=== PATIENT | male | born 1960 | race African-American/Black ===

== ENCOUNTER 2018-06-14 19:42 | Inpatient (IN) | payer OTHER ==
[~2018-06-14] VITALS: Ht 190.5 cm; Wt 101.2 kg
[2018-06-14 21:03] LABS: BASOPHILS % 1.2 % (0.0-2.0); EOSINOPHILS % 5.5 % (0.0-5.0); HEMATOCRIT. 31.1 % (42.0-52.0); HEMOGLOBIN. 10.5 g/dL (14.0-18.0); LYMPHOCYTES % 23.6 % (20.0-50.0); MEAN CORPUSCULAR HEMOGLOBIN 29.6 pg (28.0-32.0); MEAN CORPUSCULAR VOLUME 87.7 fL (80.0-94.0); MONOCYTES % 12.2 % (2.0-8.0); NEUTROPHILS % 57.5 % (40.0-76.0); PLATELET 325 x1000/uL (130-400); RED BLOOD CELL COUNT 3.55 mill/uL (4.7-6.1); RED CELL DISTRIBUTION WIDTH 13.7 % (11.6-14.6)
[2018-06-14 21:10] LABS: CHLORIDE 106 mEq/L (98-107)
[2018-06-14 21:12] LABS: PROTHROMBIN TIME 10.1 sec (9.1-11.1)
[2018-06-14] MEDS ORDERED: IPRATROPIUM/ALBUTEROL 0.5-3(2.5)MG/3ML NEB INH PRN (22:45)
[2018-06-14] MEDS ORDERED: ONDANSETRON HCL 4MG/2ML VIAL IV PRN (22:45)
[2018-06-14] MEDS ORDERED: ACETAMINOPHEN 325MG TABLET PO PRN (22:45)
[2018-06-14] MEDS ORDERED: DOCUSATE SODIUM 100MG CAPSULE PO PRN (22:45)
[2018-06-14] MEDS ORDERED: CLONIDINE 0.1MG TABLET PO PRN (22:45)
[2018-06-14] MEDS ORDERED: ACETAMINOPHEN 650MG/20.3ML UDC GT PRN (22:45)
[2018-06-14] MEDS ORDERED: GUAIFENESIN 200MG/10ML SUGAR FREE UDC PO PRN (22:45)
[2018-06-14] MEDS ORDERED: MAGNESIUM/ALUMINUM HYDROXIDE/SIMETHICONE 30ML UDC PO PRN (22:45)
[2018-06-14] MEDS ORDERED: HYDROCODONE/ACETAMINOPHEN 5/325MG TABLET PO PRN (22:45)
[2018-06-14] MEDS ORDERED: DIPHENHYDRAMINE 50MG/ML VIAL IV PRN (22:45)
[2018-06-14] MEDS ORDERED: ACETAMINOPHEN 650MG SUPP PR PRN (22:45)
[2018-06-15 01:02] LABS: CLARITY URINE CLOUDY (CLEAR); COLOR URINE YELLOW (YELLOW); KETONES URINE NEGATIVE (NEGATIVE); LEUKOCYTE ESTERASE URINE 2+ (NEGATIVE); NITRITE URINE NEGATIVE (NEGATIVE); OCCULT BLOOD URINE 2+ (NEGATIVE); PROTEIN URINE 1+ (NEGATIVE); SPECIFIC GRAVITY URINE 1.011 (1.005-1.030); UROBILINOGEN URINE 0.2 E.U./dL (0.2-1.0)
[2018-06-15 01:26] LABS: *AMPHETAMINES SCREEN URINE NEGATIVE (NEGATIVE); *BARBITURATES SCREEN URINE NEGATIVE (NEGATIVE); *BENZODIAZEPINES SCREEN URINE NEGATIVE (NEGATIVE); *COCAINE SCREEN URINE NEGATIVE (NEGATIVE); METHADONE URINE SCREEN NEGATIVE (NEGATIVE); OPIATES URINE SCREEN NEGATIVE (NEGATIVE)
[2018-06-15 01:27] LABS: CANNABINOID URINE SCREEN PRESUMTIVE POSITIVE (NEGATIVE); PHENCYCLIDINE URINE SCREEN NEGATIVE (NEGATIVE)
[2018-06-15] MEDS ORDERED: SODIUM CHLORIDE 0.45% 1,000 ML IV SCH (04:43)
[2018-06-15] MEDS ORDERED: NA PHOS,M-B/NA PHOS,DI-BA ENEMA 118ML PR PRN (04:44)
[2018-06-15 05:00] VITALS: BP 111/67
[2018-06-15] MEDS: SODIUM CHLORIDE 0.9% INJ 3ML FLUSH IVF SCH ×3 (05:32→22:06)
[2018-06-15 08:00] VITALS: BP 122/73
[2018-06-15] MEDS: SODIUM CHLORIDE 0.9% 1,000 ML IV SCH ×2 (10:25→22:06)
[2018-06-15] MEDS: ENOXAPARIN 40MG/0.4ML SYR SUBCUT SCH (10:25)
[2018-06-15 11:23] LABS: BASOPHILS % 0.9 % (0.0-2.0); HEMATOCRIT. 30.3 % (42.0-52.0); HEMOGLOBIN. 10.4 g/dL (14.0-18.0); LYMPHOCYTES % 25.1 % (20.0-50.0); MEAN CORPUSCULAR HEMOGLOBIN 29.6 pg (28.0-32.0); MEAN CORPUSCULAR VOLUME 86.1 fL (80.0-94.0); MEAN PLATELET VOLUME 7.8 fl (7.4-10.4); MONOCYTES % 11.7 % (2.0-8.0); NEUTROPHILS % 56.3 % (40.0-76.0); PLATELET 337 x1000/uL (130-400); RED BLOOD CELL COUNT 3.52 mill/uL (4.7-6.1); RED CELL DISTRIBUTION WIDTH 13.7 % (11.6-14.6)
[2018-06-15 11:32] LABS: CHLORIDE 108 mEq/L (98-107)
[2018-06-15 11:39] LABS: LDL CHOLESTEROL 47 mg/dL (5-100)
[2018-06-15 11:40] LABS: HDL CHOLESTEROL 43 mg/dL (40-59)
[2018-06-15 11:41] LABS: CREATINE KINASE 103 IU/L (39-308)
[2018-06-15 11:44] LABS: CREATINE KINASE MB FRACTION 1.4 ng/mL (0.5-3.6)
[2018-06-15 11:46] LABS: T4 FREE 0.99 ng/dL (0.76-1.46)
[2018-06-15 12:50] VITALS: BP 134/69
[2018-06-15] MEDS ORDERED: LISI40TA4 PO (13:27)
[2018-06-15] MEDS ORDERED: AMLO10TA80 PO (13:28)
[2018-06-15] MEDS ORDERED: DOCU-286 PO (13:29)
[2018-06-15] MEDS ORDERED: ATOR40TA70 PO (13:30)
[2018-06-15] MEDS ORDERED: CHLO25TA22 PO (13:32)
[2018-06-15 16:00] VITALS: BP 143/73
[2018-06-15 16:01] LABS: CREATINE KINASE 112 IU/L (39-308)
[2018-06-15 16:02] LABS: CREATINE KINASE MB FRACTION 1.6 ng/mL (0.5-3.6)
[2018-06-15 20:00] VITALS: BP 137/87
[2018-06-15] MEDS: ATORVASTATIN CALCIUM 40MG TABLET PO SCH (20:39)
[2018-06-15] MEDS: CHLORPROMAZINE HCL 25 MG TABLET PO SCH (20:39)
[2018-06-15] MEDS: AMLODIPINE 10MG TABLET PO SCH (20:40)
[2018-06-16] VITALS: BP 146/79
[2018-06-16 04:00] VITALS: BP 111/70
[2018-06-16 08:00] VITALS: BP 114/82
[2018-06-16] MEDS: AMLODIPINE 10MG TABLET PO SCH (08:30)
[2018-06-16] MEDS: CHLORPROMAZINE HCL 25 MG TABLET PO SCH ×4 (08:31→20:51)
[2018-06-16] MEDS: ENOXAPARIN 40MG/0.4ML SYR SUBCUT SCH (08:31)
[2018-06-16] MEDS: SODIUM CHLORIDE 0.9% INJ 3ML FLUSH IVF SCH ×2 (08:33→12:59)
[2018-06-16] MEDS: SODIUM CHLORIDE 0.9% 1,000 ML IV SCH (11:27)
[2018-06-16 11:29] LABS: CHLORIDE 111 mEq/L (98-107)
[2018-06-16 12:00] VITALS: BP 116/75
[2018-06-16 12:30] LABS: BASOPHILS % 0.7 % (0.0-2.0); EOSINOPHILS % 6.4 % (0.0-5.0); HEMATOCRIT. 30.9 % (42.0-52.0); HEMOGLOBIN. 10.4 g/dL (14.0-18.0); LYMPHOCYTES % 24.1 % (20.0-50.0); MEAN CORPUSCULAR HEMOGLOBIN 29.5 pg (28.0-32.0); MEAN CORPUSCULAR VOLUME 87.9 fL (80.0-94.0); MONOCYTES % 11.8 % (2.0-8.0); PLATELET 315 x1000/uL (130-400); RED BLOOD CELL COUNT 3.51 mill/uL (4.7-6.1); RED CELL DISTRIBUTION WIDTH 13.8 % (11.6-14.6)
[2018-06-16 16:00] VITALS: BP 112/62
[2018-06-16 20:00] VITALS: BP 131/68
[2018-06-16] MEDS: ATORVASTATIN CALCIUM 40MG TABLET PO SCH (20:50)
== END 2018-06-16 21:37 | disposition short-term general hospital (02) | DRG 74 ==
LOC: ER 19:42 → 7WST 21:55 → ENRESERV 06-15 02:19
PROVIDERS: ADMIT Family Medicine; ATTEND Family Medicine
DX: G90.8 Other disorders of autonomic nervous system (principal); N17.9 Acute kidney failure, unspecified; E11.22 Type 2 diabetes mellitus with diabetic chronic kidney disease; I12.9 Hypertensive chronic kidney disease with stage 1 through stage 4 chronic kidney disease, or unspecified chronic kidney disease; N18.9 Chronic kidney disease, unspecified; D64.9 Anemia, unspecified; E78.5 Hyperlipidemia, unspecified; E86.0 Dehydration; F10.10 Alcohol abuse, uncomplicated; R79.1 Abnormal coagulation profile; Z85.46 Personal history of malignant neoplasm of prostate; Z79.899 Other long term (current) drug therapy
CPT/HCPCS: 36415; 71045; 76770; 78582; 80053; 80061; 80305; 81003; 82550; 82553; 83036; 83880; 84439; 84443; 84484; 85025; 85379; 85610; 93005; 93306; 93970; 99285; A9558; J1650; J7030; Q0161